=== PATIENT | female | born 1995 | race Caucasian/White ===

== ENCOUNTER 2024-01-19 18:25 | Emergency (ER) | payer BC, SELFPAY ==
[2024-01-19 18:33] VITALS: BP 123/82; PULSE 85; RESP 16; TEMP 36.8; O2SAT 100
--- NOTE | 2024-01-19 18:44 | ED.EAR ---
HPI - Ear Problem General Chief complaint: Ear Stated complaint: Infected Ear Time Seen by Provider: 01/19/24 18:44 History of Present Illness HPI Narrative: patient presents with complaints of tenderness to pierced area of right ear. She reports that discomfort began yesterday, has gotten worse throughout the day today. She reports that she noted some crustiness to the affected site. Of note, the piercing is about [id number], she has not had difficulty with that in the past. She denies any fever, chills, sweats. She voices no other concerns or complaints today. She has been washing the area frequently to try to keep it from getting worse Related Data Allergies Allergy/AdvReac Type Severity Reaction Status Date / Time No Known Allergies Allergy Unverified 12/13/20 09:59 Review of Systems Review of Systems: All systems reviewed & are unremarkable except as noted in HPI and below Constitutional: Constitutional: Reports no additional constitutional complaints ENT: Reports system reviewed and no additional complaints, except as documented and Reports as per HPI Cardiovascular: Cardiovascular: Reports no additional cardiovascular complaints Respiratory: Respiratory: Reports no additional respiratory complaints Gastrointestinal: Gastrointestinal: Reports no additional gastrointestinal complaints [facility] Family History Family History Mother Thyroid disease Diabetes mellitus Asthma Hypertension Sibling Asthma Social History Social History Smoking status: Never smoker Second hand tobacco smoke exposure: No Alcohol intake: never Substance use: never Exam Const: General: cooperative, no acute distress, alert and awake Orientation/consciousness: oriented to person, oriented to place and oriented to time HENMT: Head: normal to inspection Ears: external ear abnormal auricular tenderness on the right Outer ear/TM images: 1. infected piercing, purulent drainage noted from site Resp: Effort & Inspection: normal respiratory effort and able to speak in complete sentences Auscultation: clear to auscultation bilaterally, no crackles, no rales, no rhonchi and no wheezes Cardio: Palpation: normal PMI Rate: regular rate Rhythm: regular rhythm Heart sounds: S1 normal heart sound present and S2 normal heart sound present Neuro: General: oriented to person, oriented to place and oriented to time Cranial nerves: Yes CN's II-XII intact bilaterally Psych: Appearance: grossly normal Thought process: Normal thought process present Insight: Good insight present (Psych) Judgement: Good judgement present (Psych) Course Course Level of Care: Express Care Visit Vital Signs Vital signs: Vital Signs Temperature 98.2 F 01/19/24 18:33 Pulse Rate 85 01/19/24 18:33 Respiratory Rate 16 01/19/24 18:33 Blood Pressure 123/82 01/19/24 18:33 Pulse Oximetry 100 01/19/24 18:33 Temperature 98.2 F 01/19/24 18:33 Pulse Rate 85 01/19/24 18:33 Respiratory Rate 16 01/19/24 18:33 Blood Pressure 123/82 01/19/24 18:33 Pulse Oximetry 100 01/19/24 18:33 Medical Decision Making MDM Narrative Medical decision making narrative: patient with redness, tenderness, purulent drainage from site of cartilage piercing to the right ear. Start Augmentin. Keep site clean. Follow with primary care provider. Emergency department for new or worse symptoms. Discharge instructions reviewed with patient, as well as provided in writing per nursing staff. The instructions also include specific and strict return/GO TO THE ER as well as f/u information. All questions have been answered, and the patient deny any further questions with discharge and discharge plan. Some parts of this dictation were generated by voice recognition software and may contain typographical and/or grammatical inaccur
== END 2024-01-19 18:52 | disposition home or self-care (01) ==
PROVIDERS: Emergency Provider Nurse Practitioner Family; PCP Family Medicine
DX: S01.331A Puncture wound without foreign body of right ear, initial encounter (principal); L08.9 Local infection of the skin and subcutaneous tissue, unspecified; X58.XXXA Exposure to other specified factors, initial encounter
CPT/HCPCS: 99213; G0463